=== PATIENT | female | born 1935 | race Caucasian/White ===

== ENCOUNTER 2016-12-20 00:53 | Emergency (ER) | payer BC, MEDICARE ==
--- NOTE | 2016-12-20 01:30 | Emergency Department Record ---
History of Present Illness - General Chief Complaint: Palpitations Stated Complaint: heart is beating fast told by to come in Time Seen by Provider: 12/20/16 00:56 Source: Patient Mode of Arrival: Ambulatory Limitations: No limitations - History of Present Illness Initial Comments: 81 yo female presents to ED with a CC of palpitations this evening. Patient denies chest pain or discomfort. Patient reports that her metoprolol was recently weaned off 1.5 weeks ago. Patient called her PCP and was told to take 1/2 tablet this evening, and if her johnson rate remained elevated, to come to the ED for evaluation. Patient denies history of arrhythmia or heart problems at her baseline. MD Complaint: "Heart racing" Onset/Timin -: Days(s) Associated Symptoms: Denies other symptoms Treatments Prior to Arrival: Beta-julio Treatment Prior to Arrival Comment:: took 1/2 tab metoprolol at 830pm - Related Data Home Medications Medication Instructions Recorded Confirmed Last Taken Citalopram Hydrobromide 20 mg PO DAILY 12/20/16 12/20/16 12/19/16 [Citalopram HBr] Levothyroxine Sodium [Synthroid] 50 mcg PO DAILY 12/20/16 12/20/16 12/19/16 Metoprolol Succinate 50 mg PO DAILY 12/20/16 12/20/16 12/19/16 Simvastatin [Zocor] 20 mg PO DAILY 12/20/16 12/20/16 12/19/16 Allergies Allergy/AdvReac Type Severity Reaction Status Date / Time No Known Drug Allergies Allergy Verified 12/20/16 01:02 Travel Screening - Travel/Exposure Within Last 30 Days Have you traveled within the last 30 days?: No - Travel Symptoms Symptom Screening: None Review of Systems Constitutional: Denies: Chills, Fever, Malaise, Night sweats Eyes: Denies: Eye discharge, Eye pain ENT: Denies: Congestion, Ear pain, Epistaxis Respiratory: Denies: Cough, Dyspnea Cardiovascular: Reports: Palpitations. Denies: Chest pain, Dyspnea on exertion Endocrine: Denies: Fatigue, Heat or cold intolerance Gastrointestinal: Denies: Abdominal pain, Nausea, Vomiting Genitourinary: Denies: Incontinence, Retention Musculoskeletal: Denies: Arthralgia, Back pain, Gout, Joint swelling Skin: Denies: Bruising, Change in color Neurological: Denies: Abnormal gait, Confusion, Headache, Seizure Psychiatric: Denies: Anxiety Hematological/Lymphatic: Denies: Anemia, Blood Clots Past Medical History - SOCIAL HISTORY Smoking Status: Never smoker - RESPIRATORY Hx Respiratory Disorders: No - CARDIOVASCULAR Hx Cardio Disorders: Yes Hx Hypertension: Yes Comment:: high cholesterol - NEURO Hx Neuro Disorders: No - GI Hx GI Disorders: No - Hx Genitourinary Disorders: Yes Hx Kidney Stones: Yes - ENDOCRINE Hx Endocrine Disorders: Yes Hx Thyroid Disease: Yes (low) - MUSCULOSKELETAL Hx Musculoskeletal Disorders: No - PSYCH Hx Psych Problems: No - HEMATOLOGY/ONCOLOGY Hx Hematology/Oncology Disorders: Yes Hx Cancer: Yes (Basal cell-face) Hx Chemotherapy: No Hx Radiation Therapy: No Family Medical History Any Significant Family History?: Yes Hx Cancer: Father Hx Heart Disease: Grandparents Hx HTN: Mother Physical Exam - General General Appearance: Alert, Oriented x3, Cooperative, No acute distress Limitations: No limitations - Head Head exam: Atraumatic, Normocephalic, Normal inspection Head exam detail: negative: Abrasion, Contusion, Dobbins's sign, General tenderness, Hematoma, Laceration - Eye Eye exam: Normal appearance. negative: Conjunctival injection, Periorbital swelling, Periorbital tenderness, Scleral icterus - ENT Ear exam: negative: Auricular hematoma, Auricular trauma Nasal Exam: negative: Active bleeding, Discharge, Dried blood, Foreign body Mouth exam: negative: Drooling, Laceration, Muffled voice, Tongue elevation - Neck Neck exam: Normal inspection. negative: Meningismus, Tenderness - Respiratory Respiratory exam: Normal lung sounds bilaterally. negative: Rales, Respiratory distress, Rhonchi, Stridor - Cardiovascular Cardiovascular Exam: Regular rate, Normal rhythm, Normal heart sounds - GI/Abdominal GI/Abdominal exam: Soft. negative: Rebound, Rigid, Tenderness - Rectal Rectal exam: Deferred - exam: Deferred - Extremities Extremities exam: Normal inspection. negative: Calf tenderness, Pedal edema, Tenderness - Back Back exam: Denies: CVA tenderness (R), CVA tenderness (L) - Neurological Neurological exam: Alert, Normal gait, Oriented X3 - Psychiatric Psychiatric exam: Normal affect, Normal mood - Skin Skin exam: Normal color. negative: Abrasion Type of lesion: negative: abrasion Course Vital Signs 12/20/16 01:11 Temperature 97.4 F L Pulse Rate [ 92 H Soft Iron Inspector ] Respiratory 16 Rate Blood Pressure 139/99 [Left Arm] Pulse Ox 99 - Reevaluation(s) Reevaluation #1: 12/20/16 01:28 EKG: NSR 93 Normal axis, normal intervals No acute ST-T wave changes. Reevaluation #2: 12/20/16 02:34 Labs reviewed and are grossly unremarkable for an acute process. Patient has not had any arrhythmias while on monitor in the ED, reports that she is feeling at her baseline, and appears stable for discharge at this time. Medical Decision Making - Lab Data Result diagrams: 12/20/16 01:32 12/20/16 01:32 Disposition Disposition: Discharge Clinical Impression: Palpitations Disposition: Home, Self-Care Condition: (2) Stable Instructions: Palpitations (ED) Additional Instructions: Return to ED if your symptoms worsen or if you have any concerns. Follow-up with Dr. Elise in 1-3 days as directed. Forms: Patient Portal Access Time of Disposition: 02:35
[2016-12-20 01:36] LABS: BASO % 0.5 % (0-6); EOS % 1.8 % (0-6); GRAN % 41.1 % (47-80); HEMATOCRIT 42.6 % (35.0-47.0); HEMOGLOBIN 13.6 gm/dl (11.6-16.0); LYMPH % 46.8 % (16-45); MEAN CELL VOLUME 88.6 fl (81-97); MEAN CORPUSCULAR HEMOGLOBIN 28.3 pg (27-33); MEAN CORPUSCULAR HGB CONC 31.9 g/dl (32-36); MEAN PLATELET VOLUME 9.4 fl (7.4-10.4); MONO % 9.8 % (0-9); PLATELET COUNT 230 K/uL (130-400); RED BLOOD COUNT 4.81 M/uL (3.80-5.40); RED CELL DISTRIBUTION WIDTH 14.3 % (11.5-14.5)
[2016-12-20 01:47] LABS: ALB/GLOB RATIO 1.4 (1.1-1.8); ALKALINE PHOSPHATASE 69 U/L (38-126); ALT/SGPT 29 U/L (9-52); ANION GAP 8.9 (7-16); AST/SGOT 33 U/L (14-36); BILIRUBIN,TOTAL 0.43 mg/dL (0.2-1.3); BLOOD UREA NITROGEN 32 mg/dL (7-17); CARBON DIOXIDE 24.1 mmol/L (22-30); CREATININE 0.9 mg/dL (0.52-1.04); EST GLOMERULAR FILTRATION RATE > 60 ml/min; GLUCOSE,RANDOM 105 mg/dL (70-110); TOTAL PROTEIN 6.9 gm/dL (6.3-8.2)
[2016-12-20 02:18] LABS: THYROID STIMULATING HORMONE 4.17 uIU/ml (0.465-4.68)
== END 2016-12-20 02:50 | disposition home or self-care (01) ==
LOC: ER 00:53
DX: R00.2 Palpitations (principal); R10.13 Epigastric pain; I10 Essential (primary) hypertension
CPT/HCPCS: 80053; 84443; 85025; 93005; 93010; 99284

== ENCOUNTER 2017-01-07 06:12 | Emergency (ER) | payer MEDICARE ==
[2017-01-07] MEDS ORDERED: KETOROLAC 30 MG/ML VIAL IVP ONE ×2 (06:36→07:21)
[2017-01-07] MEDS ORDERED: 0.9 % SODIUM CHLORIDE 1000ML 1,000 ML IV PRN (06:36)
[2017-01-07] MEDS ORDERED: ONDANSETRON HCL IV 4 MG/2 ML VIAL IVP ONE (06:46)
--- NOTE | 2017-01-07 06:46 | Emergency Department Record ---
History of Present Illness - General Chief complaint: Flank Pain Stated complaint: FLANK PAIN Time Seen by Provider: 01/07/17 06:24 Mode of Arrival: Ambulatory - History of Present Illness Initial comments: patient wake up 2 hours prior to arrival to the ED with right flank pain and right lower quad pain. Patient states she had a hysterectomy and appendectomy and csection and left kidney surgury partial removal for a kidney stone(40 years ago). Also left shoulder surgery. Patient is nauseated and no vomiting. Patient is wearing a holter monitor because she had some bradycardia and he BP med adjusted (betablocker) Onset/Timin -: Hour(s) Radiation: R flank Severity: Severe Severity scale (1-10): 8 Quality: Aching Consistency: Constant Improves with: None Worsens with: Movement Associated Symptoms: Nausea/vomiting - Related Data Home Medications Medication Instructions Recorded Confirmed Last Taken Citalopram Hydrobromide 20 mg PO DAILY 12/20/16 01/07/17 01/06/17 [Citalopram HBr] Levothyroxine Sodium [Synthroid] 50 mcg PO DAILY 12/20/16 01/07/17 01/06/17 Metoprolol Succinate 25 mg PO DAILY 12/20/16 01/07/17 01/06/17 Simvastatin [Zocor] 20 mg PO DAILY 12/20/16 01/07/17 01/06/17 Previous Rx's Medication Instructions Recorded Tamsulosin HCl [Flomax] 0.4 mg PO DAILY #7 cap.er.24h 01/07/17 Tramadol HCl [Ultram] 50 mg PO Q8H #10 tab 01/07/17 Allergies Allergy/AdvReac Type Severity Reaction Status Date / Time codeine AdvReac NAUSEA Verified 01/07/17 06:15 Travel Screening - Travel/Exposure Within Last 30 Days Have you traveled within the last 30 days?: No - Travel Symptoms Symptom Screening: None Review of Systems Reviewed: No additional complaints except as noted below Constitutional: Reports: As per HPI. Denies: Chills, Fever, Malaise, Night sweats, Weakness, Weight change Eyes: Reports: As per HPI. Denies: Eye discharge, Eye pain, Photophobia, Vision change ENT: Reports: As per HPI. Denies: Congestion, Dental pain, Ear pain, Epistaxis , Hearing loss, Throat pain Respiratory: Reports: As per HPI. Denies: Cough, Dyspnea, Hemoptysis, Stridor, Wheezes Cardiovascular: Reports: As per HPI. Denies: Arrhythmia, Chest pain, Dyspnea on exertion, Edema, Murmurs, Orthopnea, Palpitations, Paroxysmal nocturnal dyspnea, Rheumatic Fever, Syncope Endocrine: Reports: As per HPI. Denies: Fatigue, Heat or cold intolerance, Polydipsia, Polyuria Gastrointestinal: Reports: As per HPI, Abdominal pain (right lower quad pain), Nausea, Other (right flank pain). Denies: Constipation, Diarrhea, Hematemesis, Hematochezia, Melena, Vomiting Genitourinary: Reports: As per HPI. Denies: Abnormal menses, Discharge, Dyspareunia, Dysuria, Frequency, Hematuria, Incontinence, Retention, Urgency Musculoskeletal: Reports: As per HPI. Denies: Arthralgia, Back pain, Gout, Joint swelling, Myalgia, Neck pain Skin: Reports: As per HPI. Denies: Bruising, Change in color, Change in hair/ nails, Lesions, Pruritus, Rash Neurological: Reports: As per HPI. Denies: Abnormal gait, Confusion, Headache, Numbness, Paresthesias, Seizure, Tingling, Tremors, Vertigo, Weakness Psychiatric: Reports: As per HPI. Denies: Anxiety, Auditory hallucinations, Depression, Homicidal thoughts, Suicidal thoughts, Visual hallucinations Hematological/Lymphatic: Reports: As per HPI. Denies: Anemia, Blood Clots, Easy bleeding, Easy bruising, Swollen glands Past Medical History - SOCIAL HISTORY Smoking Status: Never smoker Alcohol Use: None Drug Use: None - RESPIRATORY Hx Respiratory Disorders: No - CARDIOVASCULAR Hx Cardio Disorders: Yes Hx Hypertension: Yes Comment:: high cholesterol, Holter monitor due to tachycardia - NEURO Hx Neuro Disorders: No - GI Hx GI Disorders: No - Hx Genitourinary Disorders: Yes Hx Kidney Stones: Yes - ENDOCRINE Hx Endocrine Disorders: Yes Hx Thyroid Disease: Yes (low) - MUSCULOSKELETAL Hx Musculoskeletal Disorders: No - PSYCH Hx Psych Problems: No - HEMATOLOGY/ONCOLOGY Hx Hematology/Oncology Disorders: Yes Hx Cancer: Yes (Basal cell-face) Hx Chemotherapy: No Hx Radiation Therapy: No Family Medical History Any Significant Family History?: Yes Hx Cancer: Father Hx Heart Disease: Grandparents Hx HTN: Mother Physical Exam - General General Appearance: Alert, Oriented x3, Cooperative, Mild distress - Head Head exam: Normal inspection - Eye Eye exam: Normal appearance, PERRL Pupils: Normal accommodation - ENT ENT exam: Normal exam, Mucous membranes moist, Normal external ear exam, Normal orophraynx, TM's normal bilaterally Ear exam: Normal external inspection. negative: External canal tenderness Nasal Exam: Normal inspection. negative: Discharge, Sinus tenderness Mouth exam: Normal external inspection, Tongue normal Teeth exam: Normal inspection. negative: Dental caries Throat exam: Normal inspection. negative: Tonsillar erythema, Tonsillar exudate - Neck Neck exam: Normal inspection, Full ROM. negative: Tenderness - Respiratory Respiratory exam: Normal lung sounds bilaterally. negative: Respiratory distress - Cardiovascular Cardiovascular Exam: Regular rate, Normal rhythm, Normal heart sounds - GI/Abdominal GI/Abdominal exam: Soft, Normal bowel sounds, Guarding, Tenderness (right lower quad pain and right flank pain). negative: Rebound, Rigid - Rectal Rectal exam: Deferred - exam: Deferred - Extremities Extremities exam: Normal inspection, Full ROM, Normal capillary refill. negative: Tenderness - Back Back exam: Reports: Normal inspection, Full ROM. Denies: Muscle spasm, Rash noted, Tenderness - Neurological Neurological exam: Alert, Normal gait, Oriented X3, Reflexes normal - Psychiatric Psychiatric exam: Normal affect, Normal mood - Skin Skin exam: Dry, Intact, Normal color, Warm Course Vital Signs 01/07/17 06:16 Pulse Rate 75 Respiratory 20 Rate Blood Pressure 177/93 Pulse Ox 96 Medical Decision Making - Lab Data Result diagrams: 01/07/17 06:45 01/07/17 06:45 Disposition Clinical Impression: Flank pain, Kidney stone Abdominal pain Qualifiers: Abdominal location: right lower quadrant Qualified Code(s): R10.31 - Right lower quadrant pain Hydronephrosis Qualifiers: Hydronephrosis type: with ureteral calculous obstruction Qualified Code(s): N13.2 - Hydronephrosis with renal and ureteral calculous obstruction Disposition: Home, Self-Care Condition: (1) Good Instructions: Flank Pain (ED), Kidney Stones (ED), How to Strain Your Urine (ED ), Renal Colic (ED) Additional Instructions: follow up with Dr. Arcadio Altman in one week follow up with urology next week Dr. Colon or one of his associates next week. Prescriptions: Tamsulosin HCl [Flomax] 0.4 mg PO DAILY #7 cap.er.24h Tramadol HCl [Ultram] 50 mg PO Q8H #10 tab Forms: Patient Portal Access Time of Disposition: 08:59
[2017-01-07 06:55] LABS: BASO % 0.3 % (0-6); EOS % 1.8 % (0-6); GRAN % 55.9 % (47-80); HEMATOCRIT 39.6 % (35.0-47.0); HEMOGLOBIN 12.8 gm/dl (11.6-16.0); LYMPH % 34.3 % (16-45); MEAN CELL VOLUME 88.8 fl (81-97); MEAN CORPUSCULAR HEMOGLOBIN 28.7 pg (27-33); MEAN CORPUSCULAR HGB CONC 32.3 g/dl (32-36); MEAN PLATELET VOLUME 9.4 fl (7.4-10.4); MONO % 7.7 % (0-9); PLATELET COUNT 208 K/uL (130-400); RED BLOOD COUNT 4.46 M/uL (3.80-5.40); RED CELL DISTRIBUTION WIDTH 13.7 % (11.5-14.5); WHITE BLOOD COUNT W/O DIFF 6.1 K/uL (4.2-12.2)
[2017-01-07 07:07] LABS: ANION GAP 8.5 (7-16); BLOOD UREA NITROGEN 34 mg/dL (7-17); CARBON DIOXIDE 25.5 mmol/L (22-30); CREATININE 0.8 mg/dL (0.52-1.04); EST GLOMERULAR FILTRATION RATE > 60 ml/min; GLUCOSE,RANDOM 94 mg/dL (70-110)
[2017-01-07] MEDS ORDERED: TAMSULOSIN HCL 0.4 MG CAP.ER.24H PO ONE (08:49)
--- NOTE | 2017-01-07 09:06 | Emergency Department Record ---
History of Present Illness - General Chief complaint: Flank Pain Stated complaint: FLANK PAIN Time Seen by Provider: 01/07/17 06:24 Mode of Arrival: Ambulatory - History of Present Illness Onset/Timin -: Hour(s) Radiation: R flank Severity: Severe Severity scale (1-10): 8 Quality: Aching Consistency: Constant Improves with: None Worsens with: Movement Associated Symptoms: Nausea/vomiting - Related Data Home Medications Medication Instructions Recorded Confirmed Last Taken Citalopram Hydrobromide 20 mg PO DAILY 12/20/16 01/07/17 01/06/17 [Citalopram HBr] Levothyroxine Sodium [Synthroid] 50 mcg PO DAILY 12/20/16 01/07/17 01/06/17 Metoprolol Succinate 25 mg PO DAILY 12/20/16 01/07/17 01/06/17 Simvastatin [Zocor] 20 mg PO DAILY 12/20/16 01/07/17 01/06/17 Previous Rx's Medication Instructions Recorded Ibuprofen [Motrin 600Mg] 600 mg PO Q8H #30 tablet 01/07/17 Tamsulosin HCl [Flomax] 0.4 mg PO DAILY #7 cap.er.24h 01/07/17 Tramadol HCl [Ultram] 50 mg PO Q8H #10 tab 01/07/17 Allergies Allergy/AdvReac Type Severity Reaction Status Date / Time codeine AdvReac NAUSEA Verified 01/07/17 06:15 Travel Screening - Travel/Exposure Within Last 30 Days Have you traveled within the last 30 days?: No - Travel Symptoms Symptom Screening: None Review of Systems Constitutional: Reports: As per HPI. Denies: Chills, Fever, Malaise, Night sweats, Weakness, Weight change Eyes: Reports: As per HPI. Denies: Eye discharge, Eye pain, Photophobia, Vision change ENT: Reports: As per HPI. Denies: Congestion, Dental pain, Ear pain, Epistaxis , Hearing loss, Throat pain Respiratory: Reports: As per HPI. Denies: Cough, Dyspnea, Hemoptysis, Stridor, Wheezes Cardiovascular: Reports: As per HPI. Denies: Arrhythmia, Chest pain, Dyspnea on exertion, Edema, Murmurs, Orthopnea, Palpitations, Paroxysmal nocturnal dyspnea, Rheumatic Fever, Syncope Endocrine: Reports: As per HPI. Denies: Fatigue, Heat or cold intolerance, Polydipsia, Polyuria Gastrointestinal: Reports: As per HPI, Abdominal pain (right lower quad pain), Nausea, Other (right flank pain). Denies: Constipation, Diarrhea, Hematemesis, Hematochezia, Melena, Vomiting Genitourinary: Reports: As per HPI. Denies: Abnormal menses, Discharge, Dyspareunia, Dysuria, Frequency, Hematuria, Incontinence, Retention, Urgency Musculoskeletal: Reports: As per HPI. Denies: Arthralgia, Back pain, Gout, Joint swelling, Myalgia, Neck pain Skin: Reports: As per HPI. Denies: Bruising, Change in color, Change in hair/ nails, Lesions, Pruritus, Rash Neurological: Reports: As per HPI. Denies: Abnormal gait, Confusion, Headache, Numbness, Paresthesias, Seizure, Tingling, Tremors, Vertigo, Weakness Psychiatric: Reports: As per HPI. Denies: Anxiety, Auditory hallucinations, Depression, Homicidal thoughts, Suicidal thoughts, Visual hallucinations Hematological/Lymphatic: Reports: As per HPI. Denies: Anemia, Blood Clots, Easy bleeding, Easy bruising, Swollen glands Past Medical History - SOCIAL HISTORY Smoking Status: Never smoker Alcohol Use: None Drug Use: None - RESPIRATORY Hx Respiratory Disorders: No - CARDIOVASCULAR Hx Cardio Disorders: Yes Hx Hypertension: Yes Comment:: high cholesterol, Holter monitor due to tachycardia - NEURO Hx Neuro Disorders: No - GI Hx GI Disorders: No - Hx Genitourinary Disorders: Yes Hx Kidney Stones: Yes - ENDOCRINE Hx Endocrine Disorders: Yes Hx Thyroid Disease: Yes (low) - MUSCULOSKELETAL Hx Musculoskeletal Disorders: No - PSYCH Hx Psych Problems: No - HEMATOLOGY/ONCOLOGY Hx Hematology/Oncology Disorders: Yes Hx Cancer: Yes (Basal cell-face) Hx Chemotherapy: No Hx Radiation Therapy: No Family Medical History Any Significant Family History?: Yes Hx Cancer: Father Hx Heart Disease: Grandparents Hx HTN: Mother Course Vital Signs 01/07/17 01/07/17 01/07/17 06:16 06:54 08:43 Temperature 97.8 F Pulse Rate 75 Respiratory 20 16 Rate Blood Pressure 177/93 Blood Pressure 154/89 [Left Arm] Pulse Ox 96 98 Medical Decision Making - Lab Data Result diagrams: 01/07/17 06:45 01/07/17 06:45 Lab Results 01/07/17 01/07/17 Range/Units 06:45 06:45 WBC 6.1 (4.2-12.2) K/uL RBC 4.46 (3.80-5.40) M/uL Hgb 12.8 (11.6-16.0) gm/dl Hct 39.6 (35.0-47.0) % MCV 88.8 (81-97) fl MCH 28.7 (27-33) pg MCHC 32.3 (32-36) g/dl RDW 13.7 (11.5-14.5) % Plt Count 208 (130-400) K/uL MPV 9.4 (7.4-10.4) fl Gran % 55.9 (47-80) % Lymphocytes % 34.3 (16-45) % Monocytes % 7.7 (0-9) % Eosinophils % 1.8 (0-6) % Basophils % 0.3 (0-6) % Sodium 137 (136-145) mmol/L Potassium 4.2 (3.5-5.1) mmol/L Chloride 103 (98-107) mmol/L Carbon Dioxide 25.5 (22-30) mmol/L Anion Gap 8.5 (7-16) BUN 34 H (7-17) mg/dL Creatinine 0.8 (0.52-1.04) mg/dL Estimated GFR > 60 ml/min Random Glucose 94 (70-110) mg/dL Calcium 9.1 (8.5-10.1) mg/dL Disposition Clinical Impression: Flank pain, Kidney stone Abdominal pain Qualifiers: Abdominal location: right lower quadrant Qualified Code(s): R10.31 - Right lower quadrant pain Hydronephrosis Qualifiers: Hydronephrosis type: with ureteral calculous obstruction Qualified Code(s): N13.2 - Hydronephrosis with renal and ureteral calculous obstruction Disposition: Home, Self-Care Condition: (1) Good Instructions: Kidney Stones (ED), Renal Colic (ED), How to Strain Your Urine ( ED), Flank Pain (ED) Additional Instructions: follow up with Dr. Arcadio Altman in one week follow up with urology next week Dr. Colon or one of his associates next week. Prescriptions: Ibuprofen [Motrin 600Mg] 600 mg PO Q8H #30 tablet Tamsulosin HCl [Flomax] 0.4 mg PO DAILY #7 cap.er.24h Tramadol HCl [Ultram] 50 mg PO Q8H #10 tab Forms: Patient Portal Access
[2017-01-07] MEDS ORDERED: TRAMADOL HCL 50 MG TABLET PO ONE (09:19)
== END 2017-01-07 09:44 | disposition home or self-care (01) ==
LOC: ER 06:12
DX: N13.2 Hydronephrosis with renal and ureteral calculous obstruction (principal); R10.31 Right lower quadrant pain; R11.2 Nausea with vomiting, unspecified
CPT/HCPCS: 99284 ×2; 96376; 96374; 96375; 85025; 80048; 74176; J1885; J2405

== ENCOUNTER 2017-04-15 20:48 | Emergency (ER) | payer MEDICARE ==
[2017-04-15 21:40] LABS: BASO % 0.3 % (0-6); EOS % 1.4 % (0-6); GRAN % 49.7 % (47-80); HEMATOCRIT 42.8 % (35.0-47.0); HEMOGLOBIN 14.4 gm/dl (11.6-16.0); LYMPH % 40.4 % (16-45); MEAN CORPUSCULAR HEMOGLOBIN 29.3 pg (27-33); MEAN CORPUSCULAR HGB CONC 33.6 g/dl (32-36); MEAN PLATELET VOLUME 10.1 fl (7.4-10.4); MONO % 8.2 % (0-9); PLATELET COUNT 222 K/uL (130-400); RED BLOOD COUNT 4.92 M/uL (3.80-5.40); RED CELL DISTRIBUTION WIDTH 13.4 % (11.5-14.5); WHITE BLOOD COUNT W/O DIFF 6.9 K/uL (4.2-12.2)
[2017-04-15 21:49] LABS: ANION GAP 12.4 (7-16); CARBON DIOXIDE 23.6 mmol/L (22-30)
--- NOTE | 2017-04-15 21:51 | Emergency Department Record ---
History of Present Illness - General Chief Complaint: Rapid heartbeat Stated Complaint: RAPID HEARTBEAT Time Seen by Provider: 04/15/17 21:38 Source: Patient Mode of Arrival: Ambulatory Limitations: No limitations - History of Present Illness Initial Comments: The patient is here due to feeling like her heart has been racing for about a week ever since she stopped her Metoprolol. 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 Per the family her HR had been running low on 50 mg daily so her PCP stopped it after cutting it in half for some time. She denies any CP, SOB, PAWEL, LOFTON, nausea or vomiting. The patient does have a hx of HTN. MD Complaint: "Heart racing" Onset/Timin -: Week(s) Context: Occurred during rest - Related Data Previous Rx's Medication Instructions Recorded Metoprolol Succinate [Toprol Xl] 25 mg PO DAILY #7 tab.er.24h 04/15/17 Allergies Allergy/AdvReac Type Severity Reaction Status Date / Time codeine AdvReac NAUSEA Verified 01/07/17 06:15 Travel Screening - Travel/Exposure Within Last 30 Days Have you traveled within the last 30 days?: No Review of Systems Constitutional: Denies: Chills, Fever Eyes: Denies: Eye discharge ENT: Denies: Congestion Respiratory: Denies: Cough, Dyspnea Cardiovascular: Reports: Arrhythmia. Denies: Chest pain, Dyspnea on exertion Past Medical History - SOCIAL HISTORY Smoking Status: Never smoker Alcohol Use: None Drug Use: None - RESPIRATORY Hx Respiratory Disorders: No - CARDIOVASCULAR Hx Cardio Disorders: Yes Hx Hypertension: Yes Comment:: high cholesterol, Holter monitor due to tachycardia - NEURO Hx Neuro Disorders: No - GI Hx GI Disorders: No - Hx Genitourinary Disorders: Yes Hx Kidney Stones: Yes - ENDOCRINE Hx Endocrine Disorders: Yes Hx Thyroid Disease: Yes (Hypo) - MUSCULOSKELETAL Hx Musculoskeletal Disorders: No - PSYCH Hx Psych Problems: No - HEMATOLOGY/ONCOLOGY Hx Hematology/Oncology Disorders: Yes Hx Cancer: Yes (Basal cell-face) Hx Chemotherapy: No Hx Radiation Therapy: No Family Medical History Any Significant Family History?: Yes Hx Cancer: Father Hx Heart Disease: Grandparents Hx HTN: Mother Physical Exam - General General Appearance: Alert, Oriented x3, Cooperative, No acute distress - Head Head exam: Atraumatic, Normocephalic, Normal inspection - Eye Eye exam: Normal appearance, PERRL - Neck Neck exam: Normal inspection, Full ROM. negative: Tenderness - Respiratory Respiratory exam: Normal lung sounds bilaterally. negative: Respiratory distress - Cardiovascular Cardiovascular Exam: Regular rate, Normal rhythm, Normal heart sounds, Tachycardia - GI/Abdominal GI/Abdominal exam: Soft, Normal bowel sounds. negative: Tenderness - Extremities Extremities exam: Normal inspection, Full ROM, Normal capillary refill. negative: Tenderness - Neurological Neurological exam: Alert, Normal gait. negative: Abnormal gait, Motor sensory deficit Course Vital Signs 04/15/17 20:53 Temperature 97.4 F L Pulse Rate 138 H Respiratory 18 Rate Blood Pressure 169/118 Pulse Ox 98 - Reevaluation(s) Reevaluation #1: A 2nd EKG was performed after IV Lopressor: NSR at 79, Neg ST-T changes. Normal EKG. 04/15/17 22:28 Reevaluation #2: The patient is doing a lot better at this time. She feels back to normal and her HR is now in the 70's consistently. She feels well and is ready for home. 04/15/17 23:04 Reevaluation #3: I did discuss the case with Dr. Maria and he agrees with the plan to discharge to home on a lower dose of Metoprolol. She is to see Dr. Elise next week for recheck. 04/15/17 23:20 Medical Decision Making - Data Complexity MDM Data: Labs Ordered and/or Reviewed, EKG Ordered and/or Reviewed - Lab Data Result diagrams: 04/15/17 21:04 04/15/17 21:04 Lab Results 04/15/17 Range/Units 21:04 WBC 6.9 (4.2-12.2) K/uL RBC 4.92 (3.80-5.40) M/uL Hgb 14.4 (11.6-16.0) gm/dl Hct 42.8 (35.0-47.0) % MCV 87.0 (81-97) fl MCH 29.3 (27-33) pg MCHC 33.6 (32-36) g/dl RDW 13.4 (11.5-14.5) % Plt Count 222 (130-400) K/uL MPV 10.1 (7.4-10.4) fl Gran % 49.7 (47-80) % Lymphocytes % 40.4 (16-45) % Monocytes % 8.2 (0-9) % Eosinophils % 1.4 (0-6) % Basophils % 0.3 (0-6) % - EKG Data -: EKG Interpreted by Me (Sinus tach at 130. Neg ST-T changes.) Disposition Disposition: Discharge Clinical Impression: Tachycardia Disposition: Home, Self-Care Condition: (1) Good Instructions: Heart Palpitations (ED) Additional Instructions: Please continue your regular medicines and restart the Metoprolol at 12.5 mg daily. Please see your PCP next week for recheck. Return to the ER for any pain , trouble breathing or if your HR increases and does not improve with the Metoprolol. Prescriptions: Metoprolol Succinate [Toprol Xl] 25 mg PO DAILY #7 tab.er.24h Forms: Patient Portal Access Time of Disposition: 23:26 Quality - Quality Measures Quality Measures: N/A - Blood Pressure Screening View Details: Yes Does Patient Have Any of the Following: No Blood Pressure Classification: Hypertensive Reading Systolic Measurement: 169 Diastolic Measurement: 118 Screening for High Blood Pressure: < Pre-Hypertensive BP, F/U Documented > [ [id number]] Pre-Hypertensive Follow-up Interventions: Referral to alternative/primary care provider.
[2017-04-15] MEDS: METOPROLOL TART 5 MG/5 ML VIAL IV ONE (22:03)
[2017-04-15 22:10] LABS: CREATINE PHOSPHOKINASE 81 U/L (30-135)
[2017-04-15] MEDS ORDERED: METOPROLOL TART 25 MG TABLET PO ONE (22:11)
[2017-04-15 22:12] LABS: INR 1.04; PARTIAL THROMBOPLASTIN TIME 28.9 SECONDS (24.5-39.1); PROTHROMBIN TIME (PATIENT) 11.2 SECONDS (9.5-12.1)
[2017-04-15 22:24] LABS: CKMB 1.9 ug/L (0-6)
[2017-04-15 22:26] LABS: TROPONIN I < 0.012 ng/mL (0.00-0.034)
[2017-04-15 22:42] LABS: THYROID STIMULATING HORMONE 3.85 uIU/ml (0.465-4.68)
== END 2017-04-15 23:42 | disposition home or self-care (01) ==
LOC: ER 20:48
DX: R00.0 Tachycardia, unspecified (principal); E03.9 Hypothyroidism, unspecified; I10 Essential (primary) hypertension
CPT/HCPCS: 80048; 82550; 82553; 84443; 84484; 85025; 85610; 85730; 93005; 93010; 96374; 99284

== ENCOUNTER 2018-07-09 19:07 | Emergency (ER) | payer MEDICARE ==
[2018-07-09] MEDS ORDERED: 0.9 % SODIUM CHLORIDE 1000ML 500 ML IV SCH (19:30)
--- NOTE | 2018-07-09 19:32 | Emergency Department Record ---
History of Present Illness - General Chief Complaint: Arrythmia/Palpitations Stated Complaint: PALPITATIONS Time Seen by Provider: 07/09/18 19:11 Source: Patient Mode of Arrival: Ambulatory Limitations: No limitations - History of Present Illness Initial Comments: 82 yo female presents to ED for evaluation of an elevated heart rate throughout the day. Patient reports a history of previous symptoms, reports her symptoms are normally controlled with metoprolol. Patient reports that has not take her medication this evening yet, but reports that she is feeling much better now in the ED. Patient denies any chest pain or discomfort at any time today, denies fevers, chills, or cough symptoms. MD Complaint: Palpitations Onset/Timin -: Hour(s) Context: Occurred during rest Arrythmia History: Atrial fibrillation Associated Symptoms: Denies other symptoms - Related Data Home Medications Medication Instructions Recorded Confirmed Last Taken Zoledronic Acid/Mannitol&Water 5 mg IV ASDIR 07/09/18 07/09/18 Unknown [Reclast] Previous Rx's Medication Instructions Recorded Metoprolol Succinate [Toprol Xl] 25 mg PO DAILY #7 tab.er.24h 04/15/17 Allergies Allergy/AdvReac Type Severity Reaction Status Date / Time codeine AdvReac NAUSEA Verified 01/07/17 06:15 Travel Screening - Travel/Exposure Within Last 30 Days Have you traveled within the last 30 days?: No Review of Systems Constitutional: Denies: Chills, Fever, Malaise, Night sweats Eyes: Denies: Eye discharge, Eye pain ENT: Denies: Congestion, Ear pain, Epistaxis Respiratory: Denies: Cough, Dyspnea Cardiovascular: Reports: Palpitations. Denies: Chest pain, Dyspnea on exertion Endocrine: Denies: Fatigue, Heat or cold intolerance Gastrointestinal: Denies: Abdominal pain, Nausea, Vomiting Genitourinary: Denies: Incontinence, Retention Musculoskeletal: Denies: Arthralgia, Back pain Skin: Denies: Bruising, Change in color Neurological: Denies: Abnormal gait, Confusion, Headache, Seizure Psychiatric: Denies: Anxiety Hematological/Lymphatic: Denies: Anemia, Blood Clots Past Medical History - SOCIAL HISTORY Smoking Status: Never smoker Alcohol Use: None Drug Use: None - RESPIRATORY Hx Respiratory Disorders: No - CARDIOVASCULAR Hx Cardio Disorders: Yes Hx Hypertension: Yes Hx Palpitations: Yes Comment:: high cholesterol, Holter monitor due to tachycardia - NEURO Hx Neuro Disorders: No - GI Hx GI Disorders: No - Hx Genitourinary Disorders: Yes Hx Kidney Stones: Yes - ENDOCRINE Hx Endocrine Disorders: Yes Hx Thyroid Disease: Yes (Hypo) - MUSCULOSKELETAL Hx Musculoskeletal Disorders: No - PSYCH Hx Psych Problems: No - HEMATOLOGY/ONCOLOGY Hx Hematology/Oncology Disorders: Yes Hx Cancer: Yes (Basal cell-face) Hx Chemotherapy: No Hx Radiation Therapy: No Family Medical History Any Significant Family History?: Yes Hx Cancer: Father Hx Heart Disease: Grandparents Hx HTN: Mother Physical Exam - General General Appearance: Alert, Oriented x3, Cooperative, Mild distress Limitations: No limitations - Head Head exam: Atraumatic, Normocephalic, Normal inspection Head exam detail: negative: Abrasion, Contusion, Dobbins's sign, General tenderness, Hematoma, Laceration - Eye Eye exam: Normal appearance. negative: Conjunctival injection, Periorbital swelling, Periorbital tenderness, Scleral icterus - ENT Ear exam: negative: Auricular hematoma, Auricular trauma Nasal Exam: negative: Active bleeding, Discharge, Dried blood, Foreign body Mouth exam: negative: Drooling, Laceration, Muffled voice, Tongue elevation - Neck Neck exam: Normal inspection. negative: Meningismus, Tenderness - Respiratory Respiratory exam: Normal lung sounds bilaterally. negative: Rales, Respiratory distress, Rhonchi, Stridor - Cardiovascular Cardiovascular Exam: Normal rhythm, Normal heart sounds, Tachycardia - GI/Abdominal GI/Abdominal exam: Soft. negative: Rebound, Rigid, Tenderness - Rectal Rectal exam: Deferred - exam: Deferred - Extremities Extremities exam: Normal inspection. negative: Calf tenderness, Pedal edema, Tenderness - Back Back exam: Denies: CVA tenderness (R), CVA tenderness (L) - Neurological Neurological exam: Alert, Normal gait, Oriented X3 - Psychiatric Psychiatric exam: Normal affect, Normal mood - Skin Skin exam: Normal color. negative: Abrasion Type of lesion: negative: abrasion Course Vital Signs 07/09/18 19:13 Temperature 97.6 F Pulse Rate [ 104 H Pulse Ox Probe] Respiratory 24 Rate Blood Pressure 177/111 [Left Arm] Pulse Ox 95 - Reevaluation(s) Reevaluation #1: 07/09/18 19:31 EKG: Sinus tachycardia 106 normal axis, normal intervals no acute ST-T wave changes present. Reevaluation #2: 07/09/18 20:01 Laboratory studies were reviewed and are grossly unremarkable for an acute process. Pulse improved to 80's on re-examination, patient reports that her symptoms have resolved. Patient appears stable for discharge at this time. Medical Decision Making - Lab Data Result diagrams: 07/09/18 19:25 07/09/18 19:25 Disposition Disposition: Discharge Clinical Impression: Palpitations Disposition: Home, Self-Care Condition: (2) Stable Instructions: Heart Palpitations (ED) Additional Instructions: Return to ED if your symptoms worsen or if you have any concerns. Follow-up with your family doctor in 3-5 days as directed. Forms: Patient Portal Access Time of Disposition: 20:05 Quality - Quality Measures Quality Measures: N/A - Blood Pressure Screening Does Patient Have Any of the Following: Active Dx of HTN Blood Pressure Classification: Hypertensive Reading Systolic Measurement: 141 Diastolic Measurement: 103 Screening for High Blood Pressure: Patient Exclusion, Hx of HTN [[id number]]
[2018-07-09 19:37] LABS: BASO % 0.1 % (0-6); GRAN % 45.7 % (47-80); HEMATOCRIT 41.7 % (35.0-47.0); HEMOGLOBIN 13.6 gm/dl (11.6-16.0); MEAN CELL VOLUME 89.1 fl (81-97); MEAN CORPUSCULAR HEMOGLOBIN 29.1 pg (27-33); MEAN CORPUSCULAR HGB CONC 32.6 g/dl (32-36); MEAN PLATELET VOLUME 8.9 fl (7.4-10.4); MONO % 9.2 % (0-9); PLATELET COUNT 254 K/uL (130-400); RED BLOOD COUNT 4.68 M/uL (3.80-5.40); WHITE BLOOD COUNT W/O DIFF 7.5 K/uL (4.2-12.2)
[2018-07-09] MEDS ORDERED: METOPROLOL SUCC 25 MG TAB.ER PO SCH (19:45)
[2018-07-09 19:49] LABS: BLOOD UREA NITROGEN 25 mg/dL (8-23); CREATININE 0.9 mg/dL (0.5-0.9); EST GLOMERULAR FILTRATION RATE > 60 mL/min
[2018-07-09 19:52] LABS: GLUCOSE,RANDOM 109 mg/dL (74-109)
[2018-07-09 19:55] LABS: ALB/GLOB RATIO 1.6 (1.1-1.8); ALBUMIN 4.3 g/dL (4.0-5.0); ALKALINE PHOSPHATASE 70 U/L (35-104); ALT/SGPT 11 U/L (<33); AST/SGOT 23 U/L (10.0-35.0)
[2018-07-10] MEDS ORDERED: METOPROLOL SUCC 25 MG TAB.ER PO SCH (10:00)
== END 2018-07-09 20:17 | disposition home or self-care (01) ==
LOC: ER 19:07
DX: R00.2 Palpitations (principal); I10 Essential (primary) hypertension
CPT/HCPCS: 80053; 84484; 85025; 93005; 93010; 99284; J7030